=== PATIENT | male | born 1950 | race Caucasian/White ===

== ENCOUNTER 2017-12-13 10:32 | Inpatient (IN) | payer MEDICARE, OTHER ==
[~2017-12-13] VITALS: Ht 175.3 cm; Wt 87.7 kg
[2017-12-13] VITALS (17 sets, daily range): BP systolic 97–127; BP diastolic 66–80
[2017-12-13] MEDS ORDERED: NITROGLYCERIN 0.4 MG SL TABS BTL 25'S SL ONE (10:38)
[2017-12-13] MEDS ORDERED: NS IV 1000 ML 3,000 ML ONE (10:38)
[2017-12-13] MEDS ORDERED: NITRO DRIP 25000 MCG/D5W 0 ML IV ONE (10:38)
[2017-12-13] MEDS ORDERED: HEParin 1000 UNIT/ML (10ML VIAL) FOR BOLUS ONE ×2 (10:39→11:34)
[2017-12-13 10:53] LABS: BASOPHILS % (AUTO) 1 % (0-10); EOSINOPHILS # (AUTO) 0.1 10^3/uL (0.0-0.3); EOSINOPHILS % (AUTO) 1 % (0-10); HEMATOCRIT 41 % (40-54); HEMOGLOBIN 14.1 G/DL (13.3-17.7); LYMPHOCYTES # (AUTO) 1.7 X 10^3 (1.0-4.0); LYMPHOCYTES % (AUTO) 28 % (12-44); MEAN CORPUSCULAR HEMOGLOBIN 30 PG (25-34); MEAN CORPUSCULAR HGB CONC 34 G/DL (32-36); MEAN CORPUSCULAR VOLUME 88 FL (80-99); MEAN PLATELET VOLUME 10.8 FL (7.4-10.4); MONOCYTES # (AUTO) 0.5 X 10^3 (0.0-1.0); MONOCYTES % (AUTO) 8 % (0-12); NEUTROPHILS # (AUTO) 3.6 X 10^3 (1.8-7.8); NEUTROPHILS % (AUTO) 62 % (42-75); PLATELET COUNT 198 10^3/uL (130-400); RED BLOOD COUNT 4.69 10^6/uL (4.35-5.85); RED CELL DISTRIBUTION WIDTH 13.1 % (10.0-14.5); WHITE BLOOD COUNT 5.9 10^3/uL (4.3-11.0)
[2017-12-13] MEDS ORDERED: MIDAZOLAM 5 MG/5 ML (VERSED) VIAL ONE (10:54)
[2017-12-13] MEDS ORDERED: LIDOCAINE 1% INJ 20 ML 20 ML VIAL ONE (10:54)
[2017-12-13] MEDS ORDERED: fentaNYL INJECTION 100 MCG/2 ML AMP ONE (10:54)
--- NOTE | 2017-12-13 11:03 | ED Chest Pain ---
General Chief Complaint: Chest Pain Stated Complaint: CP/ Source: patient, family, EMS Exam Limitations: no limitations History of Present Illness Date Seen by Provider: December 13, 2017 Time Seen by Provider: 10:33 Initial Comments This 67-year-old gentleman presents to the emergency room via EMS with onset of intense central chest pain starting about one hour prior to arrival. He also noted pain radiating into the arms bilaterally. There was questionable ST elevation in multiple leads on the EKG obtained by EMS. Patient was given morphine in route. Pain improved to 3/10 from 05/10. Patient was noted to be significant only hypertensive. Subtle ST changes were noted, less prominent than on the EMS EKG. Patient has a known history of coronary artery disease with numerous stents placed in the past. He sees [facility]. His primary care providers Dr. Griffin. Allergies and Home Medications Allergies Coded Allergies: niacin (Verified Allergy, Unknown, 12/13/17) Patient Home Medication List Home Medication List Reviewed: Yes Review of Systems Constitutional: no symptoms reported EENTM: No Symptoms Reported Respiratory: No Symptoms Reported Cardiovascular: See HPI Gastrointestinal: No Symptoms Reported Genitourinary: No Symptoms Reported Musculoskeletal: no symptoms reported Skin: no symptoms reported Psychiatric/Neurological: No Symptoms Reported Endocrine: No Symptoms Reported Past Ymrwfvm-Tuwhzj-Qaincb Hx Patient Social History Alcohol Use: Occasionally Uses Recreational Drug Use: No Smoking Status: Never a Smoker Past Medical History Surgeries: Yes Coronary Stent Respiratory: No Cardiac: Yes (stentx9) Coronary Artery Disease, High Cholesterol, Hypertension Neurological: No Genitourinary: No Gastrointestinal: No Musculoskeletal: No Endocrine: No HEENT: No Cancer: No Psychosocial: No Physical Exam Vital Signs Vital Signs - First Documented 12/13/17 10:32 Temp 98.0 Pulse 59 Resp 18 B/P (MAP) 179/105 (129) Pulse Ox 98 O2 Delivery Nasal Cannula Capillary Refill : General Appearance: No Apparent Distress, WD/WN HEENT: PERRL/EOMI, Normal ENT Inspection Neck: Normal Inspection Respiratory: Lungs Clear, Normal Breath Sounds, No Accessory Muscle Use, No Respiratory Distress Cardiovascular: Regular Rate, Rhythm, No Edema, No Murmur Gastrointestinal: Normal Bowel Sounds, Non Tender, Soft Extremity: Normal Inspection, Non Tender, No Pedal Edema Neurologic/Psychiatric: Alert, Oriented x3, No Motor/Sensory Deficits, Normal Mood/Affect Skin: Normal Color, Warm/Dry Critical Care Note Critical Care Start Time: 10:57 Stop Time: 11:05 Total Time (minutes) 8 Progress Patient was being prepared for cardiac catheterization due to suspicion for ischemic changes on EKG and continued chest pain. While patient was being transferred over by Typesetting Machine Tender team, he began having some seizure-like activity, became unresponsive, and lost pulse. CPR was initiated. Monitor and defibrillator pads were applied. Patient was found to be in fine V. fib. Shock was administered. CPR was continued for approximately one minute. Rhythm changes were noted on the monitor during CPR and pulse check was performed. Patient regained pulse and became alert and started talking. Amiodarone 150 mg IV was then administered. He had variable rhythms on the monitor after ROSC Including sinus bradycardia, sinus tachycardia, and narrow complex tachycardia. Patient was alert and breathing independently when taken to Typesetting Machine Tender. Progress/Results/Core Measures Results/Orders Lab Results Laboratory Tests Test 12/13/17 10:27 Range/Units White Blood Count 5.9 4.3-11.0 10^3/uL Red Blood Count 4.69 4.35-5.85 10^6/uL Hemoglobin 14.1 13.3-17.7 G/DL Hematocrit 41 40-54 % Mean Corpuscular Volume 88 80-99 FL Mean Corpuscular Hemoglobin 30 25-34 PG Mean Corpuscular Hemoglobin Concent 34 32-36 G/DL Red Cell Distribution Width 13.1 10.0-14.5 % Platelet Count 198 130-400 10^3/uL Mean Platelet Volume 10.8 H 7.4-10.4 FL Neutrophils (%) (Auto) 62 42-75 % Lymphocytes (%) (Auto) 28 12-44 % Monocytes (%) (Auto) 8 0-12 % Eosinophils (%) (Auto) 1 0-10 % Basophils (%) (Auto) 1 0-10 % Neutrophils # (Auto) 3.6 1.8-7.8 X 10^3 Lymphocytes # (Auto) 1.7 1.0-4.0 X 10^3 Monocytes # (Auto) 0.5 0.0-1.0 X 10^3 Eosinophils # (Auto) 0.1 0.0-0.3 10^3/uL Basophils # (Auto) 0.0 0.0-0.1 10^3/uL Sodium Level 139 135-145 MMOL/L Potassium Level 4.5 3.6-5.0 MMOL/L Chloride Level 107 98-107 MMOL/L Carbon Dioxide Level 20 L 21-32 MMOL/L Anion Gap 12 5-14 MMOL/L Blood Urea Nitrogen 14 7-18 MG/DL Creatinine 0.81 0.60-1.30 MG/DL Estimat Glomerular Filtration Rate > 60 BUN/Creatinine Ratio 17 Glucose Level 127 H 70-105 MG/DL Calcium Level 9.1 8.5-10.1 MG/DL Magnesium Level 2.3 1.8-2.4 MG/DL Total Bilirubin 1.1 H 0.1-1.0 MG/DL Aspartate Amino Transf (AST/SGOT) 35 H 5-34 U/L Alanine Aminotransferase (ALT/SGPT) 28 0-55 U/L Alkaline Phosphatase 62 40-136 U/L Myoglobin 48.2 10.0-92.0 NG/ML Total Protein 7.0 6.4-8.2 GM/DL Albumin 4.2 3.2-4.5 GM/DL My Orders Orders - ESTRELLA RESTREPO MD Ekg Tracing (12/13/17 10:33) Nitroglycerin 0.4 Mg Btl 25's (Nitrostat (12/13/17 10:38) Ns Iv 1000 Ml (Sodium Chloride 0.9%) (12/13/17 10:38) Nitro Drip 33755 Mcg/D5w (Nitroglycerin (12/13/17 10:38) Heparin (Bolus Per Protocol) (Heparin (B (12/13/17 10:39) Cbc With Automated Diff (12/13/17 10:45) Magnesium (12/13/17 10:45) Chest 1 View, Ap/Pa Only (12/13/17 10:45) Cardiac Profile 1 (12/13/17 10:45) Comprehensive Metabolic Panel (12/13/17 10:45) Myoglobin Serum (12/13/17 10:45) Protime With Inr (12/13/17 10:45) Partial Thromboplastin Time (12/13/17 10:45) O2 (12/13/17 10:45) Monitor-Rhythm Ecg Trace Only (12/13/17 10:45) Lipid Panel (12/14/17 06:00) Saline Lock/Iv-Start (12/13/17 10:45) Lidocaine 1% Inj 20 Ml (Xylocaine 1% Inj (12/13/17 10:54) Midazolam Injection (Versed Injection) (12/13/17 10:54) Fentanyl Injection (Sublimaze Injection (12/13/17 10:54) Medications Given in ED Current Medications Medications Dose Ordered Sig/Bruce Route Start Time Stop Time Status Last Admin Dose Admin Nitroglycerin 0.4 mg STK-MED ONCE SL 12/13/17 10:38 12/13/17 10:43 DC 12/13/17 10:47 0.4 MG Vital Signs/I&O 12/13/17 10:32 Temp 98.0 Pulse 59 Resp 18 B/P (MAP) 179/105 (129) Pulse Ox 98 O2 Delivery Nasal Cannula Progress Progress Note : Progress Note Patient was seen and assessed on arrival. Aspirin was administered by EMS. There were crushable EKG changes. Dr. White was contacted and presented to the ER for assessment. Nitroglycerin times one was given which did not improve his pain. While the EKGs did not definitively meet criteria for STEMI, the EKGs were suspicious for ischemia in context of chest pain. Immediate heart catheter was recommended by Dr. White. Patient was agreeable. While being prepped for Typesetting Machine Tender, he developed seizure-like activity and lost pulse. He became unresponsive and CPR was initiated. See critical care progress note Initial ECG Impression Date: December 13, 2017 Initial ECG Impression Time: 10:34 Initial ECG Rate: 54 Initial ECG Rhythm: Normal Sinus Comment Sinus rhythm with PVC. Subtle ST changes suggestive of ischemia with no prior EKG for comparison. No abnormal intervals or axis deviation. Departure Impression Primary Impression: Sudden cardiac Additional Impressions: Ventricular fibrillation Chest pain Qualified Codes: R07.9 - Chest pain, unspecified Coronary artery disease Qualified Codes: I25.119 - Atherosclerotic heart disease of [place] coronary artery with unspecified angina pectoris Disposition: ADMITTED INPATIENT Condition: Critical Admissions Decision to Admit Reason: Admit from ER (General) Decision to Admit/Date: December 13, 2017 Time/Decision to Admit Time: 10:50 Departure-Patient Inst. Referrals: MARYAN GRIFFIN MD (PCP/Family) Primary Care Physician ESTRELLA RESTREPO MD December 13, 2017 11:03
[2017-12-13] MEDS ORDERED: AMIODARONE 150 MG/3 ML (CORDARONE) AMP IV ONE (11:06)
[2017-12-13 11:08] LABS: ALANINE AMINOTRANSFERASE 28 U/L (0-55); ALBUMIN 4.2 GM/DL (3.2-4.5); ALKALINE PHOSPHATASE 62 U/L (40-136); BILIRUBIN,TOTAL 1.1 MG/DL (0.1-1.0); BUN/CREATININE RATIO 17; CALCIUM 9.1 MG/DL (8.5-10.1); CARBON DIOXIDE 20 MMOL/L (21-32); CHLORIDE 107 MMOL/L (98-107); CREATININE SERUM 0.81 MG/DL (0.60-1.30); GFR ESTIMATED > 60; GLUCOSE 127 MG/DL (70-105); MAGNESIUM 2.3 MG/DL (1.8-2.4); POTASSIUM 4.5 MMOL/L (3.6-5.0); SODIUM 139 MMOL/L (135-145)
[2017-12-13] MEDS ORDERED: ONDANSETRON 4 MG/2 ML (SDV) Z0FRAN ONE ×2 (11:08→12:29)
[2017-12-13] MEDS ORDERED: TICAGRELOR 90 MG TABLET (BRILINTA) PO ONE (11:08)
[2017-12-13 11:15] LABS: MYOGLOBIN SERUM 48.2 NG/ML (10.0-92.0)
[2017-12-13] MEDS ORDERED: ATROPINE INJECTION 1 MG/10 ML SYR (ABBOTT) ONE (11:23)
[2017-12-13] MEDS ORDERED: NS IV 1000 ML 1,000 ML IV SCH (11:30)
--- NOTE | 2017-12-13 12:07 | History & Physicial-Cardiolgy ---
HPI-Cardiology Cardiology Consultation: Date of Consultation 12/13/17 Date of Admission Attending Physician Pierce White MD Admitting Physician Cris Maldonado MD Consulting Physician Pierce WHITE MD HPI: Time Seen by Provider: 11:00 Chief Complaint: Chest pain This is a 67-year-old gentleman who came to the ER with complain of severe central chest pain for one hour. Bilateral radiation. Some improvement with sublingual nitroglycerin. No shortness of breath, nausea, vomiting, syncope, near-syncope. Patient has known history of CAD and PCI, hypertension, hyperlipidemia. Patient denies active smoking or diabetes. Review of Systems-Cardiology Review of Systems Constitutional: As described under HPI; No As described under HPI, No no symptoms reported, No chills, No fever, No lightheadedness Eyes: No As described under HPI, No no symptoms reported, No blindness, No blurred vision, No contact lenses, No drainage, No decreased acuity, No foreign body sensation, No pain, No vision change Ears/Nose/Throat: No As described under HPI, No no symptoms reported, No chronic hearing loss, No ear discharge, No ear pain, No nasal drainage, No ulcerations Respiratory: No no symptoms reported; As described under HPI; No As described under HPI, No cough, No orthopnea, No shortness of breath, No SOB with excertion Cardiovascular: No no symptoms reported; As described under HPI; No As described under HPI; chest pain; No edema, No irregular heart rate, No lightheadedness, No palpitations Gastrointestinal: No no symptoms reported, No As described under HPI, No abdomen distended, No abdominal pain, No blood streaked bowels, No constipation , No diarrhea, No nausea, No vomiting, No stool coloration changes Genitourinary: No As described under HPI, No burning, No dysuria, No discharge , No frequency, No flank pain, No hematuria, No urgency Musculoskeletal: No no symptoms reported, No As describe under HPI, No back pain, No gout, No joint pain, No joint swelling, No muscle pain, No muscle stiffness, No neck pain, No other Skin: No no symptoms reported, No As described under HPI, No change in color, No change in hair/nails, No dryness, No lesions, No lumps, No rash, No other, No skin related problems, No ulcerations, No rash on exposed areas, No ulcerations on exposed areas Psychiatric/Neurological: No anxiety, No depression, No seizure, No focal weakness, No syncope Hematologic: No bleeding abnormalities [id number]-[place] Hx Patient Social History Alcohol Use: Occasionally Uses Recreational Drug Use: No Smoking Status: Never a Smoker Recent Foreign Travel: No Recent Infectious Disease Expo: No Hospitalization with Isolation: Denies Past Medical History PMH As described under Assessment. Allergies and Home Medications Allergies Coded Allergies: niacin (Verified Allergy, Unknown, 12/13/17) Patient Home Medication List Home Medication List Reviewed: Yes Physical Exam-Cardiology Physical Exam Vital Signs/I&O 12/13/17 12/13/17 10:32 10:32 Temp 98.0 Pulse 59 Resp 18 B/P (MAP) 179/105 (129) Pulse Ox 98 O2 Delivery Nasal Cannula Nasal Cannula O2 Flow Rate 2.00 Capillary Refill : Less Than 3 Seconds Constitutional: appears stated age, AAO x 3, apparent distress, well-developed , well-nourished HEENT: PERRL; No normal ENT inspection, No TMs normal, No pharynx normal, No scleral icterus (R), No scleral icterus (L), No pale conjunctivae (R), No pale conjunctivae (L), No photophobia, No TM abnormal (R), No TM abnormal (L), No pharyngeal erythema, No tonsillar exudate, No other, No discharge, No EOMI; hearing is well preserved; No hard of hearing; oral hygience is good; No ulceration, No xanthelasmas are seen Neck: No carotid bruit; carotid pulses are 2 + bilaterally Respiratory: No accessory muscle use, No respiratory distress, No chest tender , No chest expansion is symmetric; chest is bilaterally symmetric; No lungs clear to percussion; lungs clear to auscultation; No crackles, No rhonchi, No rales, No stridor, No wheezing, No pleural rub, No other Cardiovascular: regular rate-rhythm; No irregularly irregular, No extra beats, No parasternal heave is noted, No JVD, No edema, No bradycardia, No tachycardia , No point of maximal impulse, No cardiac thrills are palpable; S1 and S2; No gallop/S3, No gallop/S4, No diastolic murmur, No systolic murmur, No friction rub, No click, No other Gastrointestinal: No tender, No soft, No round, No distended, No pulsatile mass , No organomegaly, No guarding, No rebound, No tenderness, No hernia, No mass, No audible bowel sounds, No abnormal bowel sounds, No abdominal bruits, No spleenomegaly, No other Rectal: deferred Extremities: No normal range of motion, No non-tender, No normal inspection, No pedal edema, No calf tenderness, No normal capillary refill, No pelvis stable , No calf tenderness, No inflammation, No pedal edema, No slow capillary refill , No swelling, No other, No abrasion, No clubbing, No cyanosis, No ecchymosis, No laceration, No no lower extremity edema bilateral, No significant edema, No tenderness, No wound Neurologic/Psychiatric: No farm hand II-XII nml as tested; no motor/sensory deficits , alert, normal mood/affect, oriented x 3; No abnormal cerebellar tests, No abnormal farm hand II-XII, No abnormal gait, No aphasia, No EOM palsy, No facial droop , No motor weakness, No sensory deficit, No depressed affect, No disoriented x 3 , No other, No grossly intact; power is 5/5 both on sides Skin: No normal color, No warm/dry, No cyanosis, No cool, No diaphoresis, No damp, No ecchymosis, No jaundice, No mottled, No pallor, No rash, No tattoos/ piercings, No ulcerations, No rash on exposed areas, No ulcerations on exposed areas, No other Data Review Labs Laboratory Tests 12/13/17 10:27: White Blood Count 5.9, Red Blood Count 4.69, Hemoglobin 14.1, Hematocrit 41, Mean Corpuscular Volume 88, Mean Corpuscular Hemoglobin 30, Mean Corpuscular Hemoglobin Concent 34, Red Cell Distribution Width 13.1, Platelet Count 198, Mean Platelet Volume 10.8H, Neutrophils (%) (Auto) 62, Lymphocytes (%) (Auto) 28 , Monocytes (%) (Auto) 8, Eosinophils (%) (Auto) 1, Basophils (%) (Auto) 1, Neutrophils # (Auto) 3.6, Lymphocytes # (Auto) 1.7, Monocytes # (Auto) 0.5, Eosinophils # (Auto) 0.1, Basophils # (Auto) 0.0, Sodium Level 139, Potassium Level 4.5, Chloride Level 107, Carbon Dioxide Level 20L, Anion Gap 12, Blood Urea Nitrogen 14, Creatinine 0.81, Estimat Glomerular Filtration Rate > 60, BUN/ Creatinine Ratio 17, Glucose Level 127H, Calcium Level 9.1, Magnesium Level 2.3 , Total Bilirubin 1.1H, Aspartate Amino Transf (AST/SGOT) 35H, Alanine Aminotransferase (ALT/SGPT) 28, Alkaline Phosphatase 62, Myoglobin 48.2, Troponin I < 0.30, Total Protein 7.0, Albumin 4.2 ECG Impression ECG Initial ECG Impression: Acute DE A/P-Cardiology Assessment/Admission Diagnosis Acute anterior wall STEMI, V. fib arrest, Hypertension, Hyperlipidemia Admission Status: Inpatient Order (span 2 midnights) Reason for Inpatient Admission: Acute STEMI, ventricular fibrillation Plan Acute anterior wall STEMI, emergent coronary angiography. Aspirin, Brilinta bolus, IV heparin. Discussed at length the procedure and risks and complication associated with the procedure with the and patient. Risks include vascular damage, bleeding, stroke, DE and even . Ventricular fibrillation cardiac arrest: Status post brief CPR, shock. IV amiodarone given. Hypertension: Gradually add lisinopril and metoprolol. Hyperlipidemia: High-dose statin. Clinical Quality Measures AMI/AHF: ASA po Prior to arrival: Yes (BY EMS AND OFFICE) Pierce WHITE MD December 13, 2017 12:07
--- NOTE | 2017-12-13 12:08 | Coronary Angiography & PCI ---
Coronary Angiography & PCI DATE OF PROCEDURE: 12/13/17 INDICATION: Acute anterior wall STEMI, V. fib arrest. PREOPERATIVE DIAGNOSIS: Acute anterior wall STEMI, V. fib arrest. POSTOPERATIVE DIAGNOSIS: Acute occluded mid LAD stent, status post PCI. HISTORY: This is a 67-year-old gentleman with history of CAD, PCI, hypertension , hyperlipidemia who presented with severe chest pain one hour. EKG showed ST elevation in leads V1, V2, V3. Patient was consented for emergent coronary angiography. While he was being prepared for transfer to the cardiac catheterization lab, the patient had ventricular fibrillation requiring brief CPR, shock and IV amiodarone. Immediately after patient was normal rhythm and with no neurological deficit. PROCEDURES PERFORMED: 1.Coronary angiography. 2.Left heart catheterization. 3.PCI to the mid LAD with drug-eluting stent. 4. Aortic arch angiography. COMPLICATIONS: None. SPECIMENS: None. ESTIMATED BLOOD LOSS: 10 mL ANESTHESIA: Conscious sedation ANTICOAGULATION: IV heparin CONTRAST: 1 27 mL. FLUOROSCOPY: 8 minutes 9 seconds. FLOUROSCOPY DOSE: 909 mgy. PROCEDURE DETAILS: The patient is a 67 male and was brought to the mineral ore processing labourer after informed consent was taken. All the risks and complications were explained in detail; this included the risk of bleeding, vascular damage, stroke , MS and even . The patient was draped and prepped in the usual sterile fashion. Access was gained in the right femoral artery with a 6 [place] sheath. Coronary angiography was performed with a JR 4 and JL 4 Catheter. Left heart catheterization and arch angiography was performed with a pigtail catheter. FINDINGS: 1.Left main: Patent. 2.LAD: Occluded in the distal aspect of the stent . Disease segment involves just distal to the stent as well. The stent starts from the proximal segment to the midsegment of the LAD. NIYAH 0 flow. 3.Left circumflex artery: Mild disease segment in the mid left circumflex artery. 4.RCA: Patent stent in the proximal segment. No distal disease. 5.Left heart catheterization: Aortic pressure 89/55 mmHg. LV pressure 93/7 mmHg. LVEDP 16 mmHg. LVEF 35-40 percent with anterior, apical severe hypokinesis. No gradient across the aortic valve. 6. Aortic arch angiography: No aneurysm or dissection noted. Patent proximal segments of the great arteries including brachycephalic artery, left common carotid artery and left subclavian artery. RECOMMENDATIONS: Primary PCI to mid LAD is recommended. INTERVENTION DETAILS: We first took an EBU 3.5 guide catheter however we were not able to engage the left main artery. Therefore we quickly switched to a JL4 catheter. IV heparin and Brilinta 180 mg by mouth was given before the procedure. ACT was done once which was 245 seconds. We took a whisper extra support wire and crossed the lesion which is in the distal aspect of the stent and involves the [place] vessel just distal to the stent as well. NIYAH 0 flow with total occlusion. We then took a 2 x 15 mm semi-compliant emerge balloon and performed predilatation which resulted and flow into the distal vessel. Door to balloon time of 59 minutes. 2 inflations were performed with the semi-compliant balloon. We then took a Xience Alpine drug-eluting stent 2.75X 23 mm and deployed it in the disease segment in the mid LAD at 16 marlin for 48 seconds. We then took an NC Quantum 3.0X 20 mm noncompliant balloon and performed high pressure inflations in the mid and proximal aspect of the new stent and overlapped region with the previous stent. We also did balloon angioplasty with the same balloon off the proximal and midsegment of the previously placed proximal/mid LAD stent. Excellent results with no residue stenosis and NIYAH-3 flow. Patient tolerated the procedure well and did not have any complication. Mynx closure of RFA. CONCLUSIONS: 1. Primary PCI of the mid LAD within occluded stent with drug-eluting stent. 2. Dual antiplatelet therapy for life. 3. Stunned myocardium. Cardiomyopathy medications. Echocardiogram. Priya White MD, FACP, FACC, [facility] Interventional Cardiology Pierce WHITE MD December 13, 2017 12:08 pm
--- NOTE | 2017-12-13 12:08 | Cardiac Procedure Note-CS/ASA ---
Pre-Procedure Note Pre-Op Procedure Note H&P Reviewed The H&P was reviewed, patient examined and no changes noted. Date H&P Reviewed: December 13, 2017 Time H&P Reviewed: 11:00 Conscious Sedation Pre-Proced Time Reviewed: 11:00 ASA Class: 3 Airway Mallampati Classification: (standing rock appropriate class) I. II. III, IV Lungs Heart ASA score ASA 1: a normal healthy patient ASA 2: a patient with a mild systemic disease (mid diabetes, controlled hypertension, obesity ASA 3: a patient with a severe systemic disease that limits activity (angina , COPD, prior Myocardial infarction) ASA 4: a patient with an incapacitating disease that is a constant threat to life (CHF, renal failure) ASA 5: a moribund patient not expected to survive 24 hrs. (ruptured aneurysm) ASA 6: a declared brain patient whose organs are being harvested. For emergent operations, add the letter E after the classification Grade 1 Sedation Plan: Analgesia, Amnesia, Plan communicated to team members, Discussed options with patient/fam, Discussed risks with patient/fam Note The patient is an appropriate candidate to undergo the planned procedure, sedation, and anesthesia. The patient immediately re-assessed prior to indication. Pierce MIRANDA MD December 13, 2017 12:08
[2017-12-13] MEDS ORDERED: PATIENT MAY USE OWN MEDS, ALL PO SCH (12:15)
[2017-12-13] MEDS: NS IV 1000 ML 1,000 ML IV SCH ×2 (13:27→22:34)
[2017-12-13] MEDS: meTOprolol TARTRATE 25 MG (LOPRESSOR) TABLET PO SCH ×2 (13:31→20:12)
[2017-12-13 17:00] LABS: INR 1.1 (0.8-1.4); PROTHROMBIN TIME PATIENT 13.8 SEC (12.2-14.7)
[2017-12-13] MEDS: TICAGRELOR 90 MG TABLET (BRILINTA) PO SCH (20:12)
[2017-12-13] MEDS ORDERED: ATORVASTATIN 80 MG (LIPITOR) TABLET PO SCH (21:00)
[2017-12-14] VITALS (9 sets, daily range): BP systolic 122–144; BP diastolic 66–80
[2017-12-14 04:10] LABS: HEMOGLOBIN 12.1 G/DL (13.3-17.7); MEAN PLATELET VOLUME 10.2 FL (7.4-10.4); RED BLOOD COUNT 4.01 10^6/uL (4.35-5.85); RED CELL DISTRIBUTION WIDTH 13.3 % (10.0-14.5); WHITE BLOOD COUNT 7.4 10^3/uL (4.3-11.0)
[2017-12-14 04:40] LABS: CHOLESTEROL 138 MG/DL (< 200); HDL CHOLESTEROL 48 MG/DL (40-60); TRIGLYCERIDES 82 MG/DL (<150); VLDL CHOLESTEROL 16 MG/DL (5-40)
[2017-12-14 04:41] LABS: BUN/CREATININE RATIO 15; CALCIUM 8.4 MG/DL (8.5-10.1); CARBON DIOXIDE 18 MMOL/L (21-32); CHLORIDE 111 MMOL/L (98-107); CREATININE SERUM 0.74 MG/DL (0.60-1.30); GFR ESTIMATED > 60; GLUCOSE 114 MG/DL (70-105); POTASSIUM 3.7 MMOL/L (3.6-5.0); SODIUM 139 MMOL/L (135-145)
[2017-12-14] MEDS: TICAGRELOR 90 MG TABLET (BRILINTA) PO SCH (08:06)
[2017-12-14] MEDS: meTOprolol TARTRATE 25 MG (LOPRESSOR) TABLET PO SCH (08:08)
[2017-12-14] MEDS: NS IV 1000 ML 1,000 ML IV SCH (08:14)
[2017-12-14] MEDS ORDERED: lisINopril 5 MG (PRINIVIL) TABLET PO SCH (09:00)
[2017-12-14] MEDS ORDERED: ASPIRIN E.C. 81 MG (ECOTRIN) TAB PO SCH (09:00)
[2017-12-14] MEDS ORDERED: lisINopril 40 MG (PRINIVIL) TABLET PO SCH (09:00)
[2017-12-14] MEDS ORDERED: ROSU40TA PO (13:31)
[2017-12-14] MEDS ORDERED: METO-333 PO (13:31)
[2017-12-14] MEDS ORDERED: TICA90TA PO (13:31)
[2017-12-14] MEDS ORDERED: ASPI-983 PO (13:31)
[2017-12-14] MEDS ORDERED: RAMI10CA PO (13:31)
--- NOTE | 2017-12-14 13:40 | Cardiology Discharge Summary ---
Diagnosis/Chief Complaint Date of Admission 12/13/2017 Date of Discharge 12/14/2017 Admission Diagnosis Acute anterior wall STEMI, ventricular fibrillation cardiac arrest Final/Discharge Diagnosis Acute STEMI, ventricular fibrillation arrest, primary PCI to mid LAD Chief Complaint/HPI Chief Complaint/HPI This is a 67-year-old gentleman who came to the ER with complain of severe central chest pain for one hour. Bilateral radiation. Some improvement with sublingual nitroglycerin. No shortness of breath, nausea, vomiting, syncope, near-syncope. Patient has known history of CAD and PCI, hypertension, hyperlipidemia. Patient denies active smoking or diabetes. Discharge Summary Procedures Primary PCI to an occluded mid LAD stent with another drug-eluting stent. Echo shows LVEF of 4045 percent Discharge Physical Examination Normal cardiovascular examination. Stable respiratory examination. Hospital Course Stable with no further chest pain. Discussion & Recommendations Discussion I discussed at length with the patient and family. All medications, lifestyle changes, discharge instructions were discussed at length. Discharge took over 30 minutes to complete. Patient will continue on aspirin, Brilinta, lisinopril, beta riley, rosuvastatin. We will discontinue ezetimibe. Follow up appt.: Dr. White in 7-10 days. Dicharge Diet: Cardiac Diet Activity as Tolerated: Yes Home Medications Reviewed patient Home Medication Reconciliation performed by pharmacy medication reconciliations sewing pattern layout technician and/or nursing. Patients Allergies have been reviewed. Discharge Home Medications: Reviewed and agree with Discharge Medication list on patient's Discharge Instruction sheet Condition at discharge Stable Instructions to patient/family Discharge instructions given. Clinical Quality Measures AMI/AHF: ASA po Prior to arrival: Yes (BY EMS AND OFFICE) DVT/VTE Risk/Contraindication: Risk Factor Score Per Nursin RFS Level Per Nursing on Admit: 4+=Very High Pierce WHITE MD December 14, 2017 1:40 pm
--- NOTE | 2017-12-14 13:41 | Discharge Inst-Post CATH ---
Discharge Inst-CATH Post Cardiac Cath D/C Inst Follow Up/Plan Dr. White in one week. CARDIAC CATH DISCHARGE INSTRUCTIONS *Hold Metformin for 48 hours post heart cath. ACTIVITY * Go Home directly and rest. * Limit activity of the leg (or wrist if it was used) for 7 days including aerobics, swimming, jogging, bicycling, etc. * Restrict stair-climbing for 7 days if possible, if not, climb up with your non -cath leg, then bring together on the same step. * Avoid lifting, pushing, pulling or excessive movement of the affected extremity for 7 days. * Customary sexual activity may be resumed after 2 days-use caution not to use a position that strains or causes pain to the affected extremity. * No driving for 24 hours. * NO SMOKING. * Avoid straining for bowel movements for 7 days. * Gentle walking on level ground is allowed. * Returning to work will depend on the type of procedure and the results. Your doctor will discuss this with you. CALL YOUR DOCTOR FOR ANY OF THE FOLLOWING: *If bleeding from the puncture site occurs- Apply gentle pressure to site with clean cloth and call your doctor or EMS. * If a knot or lump forms under the skin, increases in size, or causes pain. * If bruising appears to be worsening or moving further down your leg instead of disappearing. * Temperature above 101 F. CARE OF YOUR GROIN INCISION; * Bruising or purple discoloration of the skin near the puncture site is common. * You may shower only, no bathtub bathing for 5 days. Be careful to avoid slipping as your leg may feel stiff. * If a closure device was used on your femoral artery, please see the attached guide regarding care of the device and your leg. * REMOVE the dressing from your groin the next day after your procedure in the shower. CARE OF YOUR WRIST INCISION; * Bruising or purple discoloration of the skin near the puncture site is common. * You may shower. * DO NOT submerge wrist. * Remove dressing in 24 hours. Pierce WHITE MD December 14, 2017 1:41 pm
== END 2017-12-14 13:45 | disposition home or self-care (01) | DRG 246 ==
LOC: ER 10:35 → CATH 11:05 → ICU 11:05 → CATH 12:12 → ICU 12:12 → CATH 12-14 13:45 → ICU 12-14 13:45
PROVIDERS: ADMIT Internal Medicine Interventional Cardiology; ATTEND Internal Medicine Interventional Cardiology
PROC: 027034Z Dilation of Coronary Artery, One Artery with Drug-eluting Intraluminal Device, Percutaneous Approach (ICD-10-PCS; principal; 2017-12-13)
PROC: 4A023N7 Measurement of Cardiac Sampling and Pressure, Left Heart, Percutaneous Approach (ICD-10-PCS; 2017-12-13)
PROC: B2151ZZ Fluoroscopy of Left Heart using Low Osmolar Contrast (ICD-10-PCS; 2017-12-13)
PROC: B2111ZZ Fluoroscopy of Multiple Coronary Arteries using Low Osmolar Contrast (ICD-10-PCS; 2017-12-13)
PROC: B3101ZZ Fluoroscopy of Thoracic Aorta using Low Osmolar Contrast (ICD-10-PCS; 2017-12-13)
DX: T82.855A Stenosis of coronary artery stent, initial encounter (principal); I21.02 ST elevation (STEMI) myocardial infarction involving left anterior descending coronary artery; I49.01 Ventricular fibrillation; I42.9 Cardiomyopathy, unspecified; I25.10 Atherosclerotic heart disease of native coronary artery without angina pectoris; I10 Essential (primary) hypertension; E78.5 Hyperlipidemia, unspecified; Z95.5 Presence of coronary angioplasty implant and graft
CPT/HCPCS: 36221; 36415; 80048; 80053; 80061; 83735; 83874; 84484; 85025; 85027; 85347; 85610; 85730; 87081; 93005; 93041; 93306; 93458

== ENCOUNTER → 2018-02-02 | Outpatient (CLI) | payer MEDICARE, OTHER ==
[~2018-02-02] MED LIST: ASPI-983 PO; METO-333 PO; RAMI10CA PO; ROSU40TA PO; TICA90TA PO
== END ==
LOC: CARD 10:18
PROVIDERS: ATTEND Internal Medicine Interventional Cardiology
DX: I25.10 Atherosclerotic heart disease of native coronary artery without angina pectoris (principal); I42.9 Cardiomyopathy, unspecified; E78.5 Hyperlipidemia, unspecified; E66.9 Obesity, unspecified
CPT/HCPCS: 93306

== ENCOUNTER → 2018-08-09 | Outpatient (CLI) | payer MEDICARE, OTHER ==
[~2018-08-09] MED LIST changes: -RAMI10CA PO; +RAMI10CA69 PO
== END ==
LOC: CARD 15:25
PROVIDERS: ATTEND Internal Medicine Interventional Cardiology
DX: I25.10 Atherosclerotic heart disease of native coronary artery without angina pectoris (principal); I42.9 Cardiomyopathy, unspecified; R07.9 Chest pain, unspecified

== ENCOUNTER → 2018-08-17 | Outpatient (CLI) | payer MEDICARE, OTHER ==
[~2018-08-17] VITALS: Ht 170.2 cm; Wt 86.6 kg
[~2018-08-17] MED LIST changes: +CATHETER FLUSH 10 ML SYR IV PRN; +REGADENOSON 0.4 MG/5 ML SYR (LEXISCAN) IV ONE
[2018-08-17 08:47] VITALS: BP 122/64
[2018-08-17 09:00] VITALS: BP 171/69
[2018-08-17 09:02] VITALS: BP 145/65
--- NOTE | 2018-08-17 14:44 | Cardiology Stress Test Report ---
Stress Test Report Type of NM Stress Test: Test Type: LEXISCAN 0.4MG/5ML Date of Procedure/Referring: Date of Procedure: Aug 17, 2018 PCP Pierce White MD Admitting Physician Cris Maldonado MD Indications: CAD, cardiomyopathy Baseline Heart Rate: 48 Baseline Blood Pressure: Blood Pressure Systolic: 145 Blood Pressure Diastolic: 65 Baseline EKG: Baseline EKG: sinus bradycardia with first degree AV block Summary & Conclusion: Summary: The patient was brought to the stress lab after informed consent was taken. Stress test was performed according to the Lexiscan protocol. 0.4 mg of IV Lexiscan was given. Low-grade exercise was performed. Baseline EKG showed sinus rhythm at 48 BPM. Maximum heart rate was 84 bpm and blood pressure 171/ 69 mmHg. Patient did not have any chest pain, arrhythmias or ST segment changes during the stress test. 10.78 mCi of Myoview were given for rest imaging and 32.2 mCi of Myoview given for stress imaging. Transient ischemic dilatation score 0.98, EF 62 percent. Normal wall motion. Normal myocardial perfusion imaging during rest and stress. Conclusion: Pharmacological stress test was negative for ischemia. Normal LV function with no wall motion abnormalities. Normal myocardial perfusion imaging during rest and stress. Pierce WHITE MD Aug 17, 2018 2:44 pm
== END ==
LOC: CARD 07:00
PROVIDERS: ATTEND Internal Medicine Interventional Cardiology
DX: I25.10 Atherosclerotic heart disease of native coronary artery without angina pectoris (principal); R07.9 Chest pain, unspecified; I42.9 Cardiomyopathy, unspecified
CPT/HCPCS: 78452; 93017

== ENCOUNTER → 2022-09-14 | Outpatient (CLI) | payer MEDICARE, OTHER ==
[~2022-09-14] MED LIST changes: +ASPI-1238 PO; -ASPI-983 PO; -CATHETER FLUSH 10 ML SYR IV PRN; -REGADENOSON 0.4 MG/5 ML SYR (LEXISCAN) IV ONE
== END ==
LOC: CARD 08:06
PROVIDERS: ATTEND Internal Medicine Cardiovascular Disease
DX: I48.19 Other persistent atrial fibrillation (principal); I51.7 Cardiomegaly
CPT/HCPCS: 93225; 93226; C8929; 93306

== ENCOUNTER → 2022-10-18 | Outpatient (CLI) | payer MEDICARE, OTHER ==
[~2022-10-18] MED LIST changes: +REGADENOSON 0.4 MG/5 ML SYR (LEXISCAN) IV ONE; +meTOprolol 5 MG/5 ML (LOPRESSOR) VIAL IV ONE; +meTOprolol 5 MG/5 ML (LOPRESSOR) VIAL ONE
[2022-10-18] MEDS: CATHETER FLUSH 10 ML SYR IVP PRN ×2 (07:50→09:15)
[2022-10-18 09:12] VITALS: BP 139/101
--- NOTE | 2022-10-18 10:51 | Cardiology Stress Test Report ---
Stress Test Report Date of Procedure/Referring: Date of Procedure: Oct 18, 2022 PCP No,Local Physician Admitting Physician Admitting Physician: Attending Physician: Clemente Knight MD Baseline Heart Rate: 87 Baseline Blood Pressure: Blood Pressure Systolic: 139 Blood Pressure Diastolic: 101 Baseline Vitals Vital Signs Date Time Temp Pulse Resp B/P (MAP) Pulse Ox O2 Delivery O2 Flow Rate FiO2 10/18/22 09:12 116 16 139/101 (114) 97 Room Air Baseline EKG: Baseline EKG: A fib Summary After explaining the procedure to the patient, he signed a consent and then brought to the stress nuclear laboratory. Patient received 0.4 mg Lexiscan for stress test, ECG, heart rate and blood pressure were monitored continuously. Resting and stress dose of radio tracer were injected, imaging was acquired and reviewed in short axis, horizontal long axis and vertical long axis views. TID: 1.1 SSS: 0 SDS: 0 EF: 62 Patient tolerated Lexiscan well Baseline atrial fibrillation persisted during test No significant ischemia or infarction noted on SPECT images Normal left ventricular size, EF 62%, gated images are unreliable due to underlying atrial fibrillation Copy Copies To 1: MAYURI HATHAWAY MD, BASHAR J MD Oct 18, 2022 10:51
== END ==
LOC: CARD 07:28
PROVIDERS: ATTEND Internal Medicine Cardiovascular Disease
DX: I10 Essential (primary) hypertension (principal); I25.10 Atherosclerotic heart disease of native coronary artery without angina pectoris
CPT/HCPCS: 78452; 93017; A9502